=== PATIENT | female | born 1975 | race Caucasian/White ===

== ENCOUNTER 2020-05-30 04:46 | Inpatient (IN) | payer OTHER ==
[2020-05-26 17:29] VITALS: BMI 27.4
--- OUTSIDE RECORDS SUMMARY | 2020-05-30 04:49 | XMS ---
:1975 Author Organization [facility] Care Team Providers Name Role Phone Darryn Tobar Unavailable Unavailable Mil Simmons Unavailable Unavailable Anne Unavailable Unavailable VALERY LOPEZ Unavailable Unavailable DARSHANA FALCON Unavailable Unavailable Re-disclosure Warning The records that you are about to access may contain information from federally- assisted alcohol or drug abuse programs. If such information is present, then the following federally mandated warning applies: This information has been disclosed to you from records protected by federal confidentiality rules (42 CFR part 2). The federal rules prohibit you from making any further disclosure of this information unless further disclosure is expressly permitted by the written consent of the person to whom it pertains or as otherwise permitted by 42 CFR part 2. A general authorization for the release of medical or other information is NOT sufficient for this purpose. The Federal rules restrict any use of the information to criminally investigate or prosecute any alcohol or drug abuse patient.The records that you are about to access may contain highly sensitive health information, the redisclosure of which is protected by Article 27-F of the [facility] Public Health law. If you continue you may haveaccess to information: Regarding HIV / AIDS; Provided by facilities licensed or operated by the [facility] Office of Mental Health; or Provided by the [facility] Office for People With Developmental Disabilities. If such information is present, then the following [facility] mandated warning applies: This information has been disclosed to you from confidential records which are protected by state law. State law prohibits you from making any further disclosure of this information without the specific written consent of the person to whom it pertains, or as otherwise permitted by law. Any unauthorized further disclosure in violation of state law may result in a fine or care home sentence or both. A general authorization for the release of medical or other information is NOT sufficient authorization for further disclosure. Allergies and Adverse Reactions Type Description Substance Reaction Status Data Source(s ) 3 NO KNOWN ALLERGIES Clindamycin 150 MG Oral NEXTGEN ([facility] Tablet [Clintabs] Medical [facility]) Encounters Encounter Providers Location Date Indications Data Source(s ) Outpatient Attender: Mil 05/17/2020 NEXTGEN ([facility] 09:36:00 AM Medical [facility]) Outpatient Attender: Darryn 05/10/2020 NEXTGEN ( [facility] JohnReferrer: 10:50:00 AM [facility]) Outpatient Attender: Darryn 05/10/2020 NEXTGEN ( [facility] JohnReferrer: Darryn 10:50:00 AM [facility] ) Outpatient Attender: Mil 04/07/2020 NEXTGEN ([facility] 01:41:00 PM Medical [facility]) Outpatient Attender: EZEKIEL 03/29/2020 Z85.3 [facility] DARSHANA PrinceAttender: 06:00:00 AM [facility] Asmita LOPEZAmerican TV 2 Go ZVIAdmitter: DARSHANA FALCONReferrer: DARSHANA FALCON Z85.3 Outpatient Attender: Ericka 2020 10:50:00 NEXTGEN ([facility] MastroddiReferrer: Mil ALVARADO EDT Medical [facility]) Outpatient Attender: Mil Simmons 07/21/2019 12:01:00 NEXTGEN ([facility] PM EST Medical - [facility]) Outpatient Attender: Mil Simmons 07/20/2019 12:22:00 NEXTGEN ([facility] PM EST Medical - [facility]) Outpatient Attender: Mil Simmons 07/19/2019 09:17:00 NEXTGEN ([facility] AM EST Medical [facility]) Outpatient Attender: Mil Simmons 07/06/2019 12:42:00 NEXTGEN ([facility] PM EDT Medical - [facility]) Outpatient Attender: Mil 01/22/2019 04:15:00 NEXTGEN ([facility] IrisReferrer: Mil Simmons PM EDT Medical - [facility]) Outpatient Attender: Mil Simmons 11/11/2018 10:27:00 NEXTGEN ([facility] AM EST Medical - [facility]) Medications Medication Brand Start Product Dose Route Administrative Pharmacy [facility] Indications Reaction Description Data Name Date Form Instructions Instructions Source(s) Amoxicillin AMOXIC 05/10/ take 1 tablet RP NEXTGEN 875 MG / ILLIN- 2020 by oral route ([facility] Clavulanate CLAVUL 12:00: every 12 hours Medical - 125 MG Oral ANATE 00 AM [facility] co Tablet 875 POTASS EDT Medical mg-125 mg Group PC) 875 mg-125 mg Fluticasone FLUTIC 05/10/ spray 2 spray RP NEXTGEN propionate ASONE 2019 by intranasal ([facility] 0.05 PROPIO 12:00: route every Med ical - MG/ACTUAT FERNANDA 00 AM day in each [facility] Metered EDT nostril Medical Dose Nasal Group PC) [place] 50 mcg/actuati on 50 mcg/actuati on This may be an active medication. No end date is available. 10 mg 10 mg 01/22/2019 12:00:00 take by Oral RP NEXTGEN ([facility] AM EDT route Medical - [facility]) This may be an active medication. No end date is available. Insurance Providers Payer name Policy type Policy ID Covered Covered green party's Policy P koffi / Coverage green party ID relationship to [facility] type fle[facility] [id number] CARE HMO/POS/EPO [facility] [id number] [facility] [id number] [facility] Open Access HMO Problems, Conditions, and Diagnoses Code Display Name Description Problem Type Effective Data Sour ce(s) Dates J01.90 Acute sinusitis, Acute bacterial Diagnosis 05/10/2020 NEX TGEN unspecified rhinosinusitis 10:50:00 AM ([facility] EDT Medical - [facility]) Z01.818 Encounter for Preop exam for Diagnosis 05/10/2020 NEXTGEN other internal medicine 10:50:00 AM ([facility] preprocedural EDT Medical - M t examination [facility]) Z85.3 Personal history PERSONAL HISTORY Diagnosis 03/29/2020 Tuan holm of malignant OF MALIGNANT 06:00:00 AM [facility] neoplasm of breast NEOPLASM OF BREAST EDT [facility] Z85.3 Personal history Personal history Diagnosis 2020 NE XTGEN of malignant of malignant 10:50:00 AM ([facility] neoplasm of breast neoplasm of breast EDT Medical - [facility]) Z00.00 Encounter for General medical Diagnosis 2020 NEXTGE N general adult examination 10:50:00 AM ([facility] medical EDT Medical - [facility] without abnormal [facility] ) findings Surgeries/Procedures Procedure Description Date Indications Data Source(s) OFFICE/OUTPATIENT OFFICE/OUTPATIENT 05/10/2020 NEXTG EN ([facility] VISIT EST VISIT EST 12:00:00 AM Medical - [facility] EDT Medical Group P C) PREV VISIT EST AGE PREV VISIT EST AGE 0703/24/2020 NEX TGEN ([facility] 40-64 40-64 12:00:00 [facility] Results ID Date Data Source [id number] 05/25/2020 01:50:00 PM EDT [facility] Name Value Range Interpretation Description Data Sup porting Code Source(s) Document(s ) SARS [facility] coronavirus 2 RNA This lab was ordered by [facility] and reported by [facility]. Procedure
[2020-05-30] MEDS ORDERED: CEFAZOLIN 2 GM in DEXTROSE 5%-WATER - 100 ML IVPB ONE (07:08)
[2020-05-30] MEDS ORDERED: PAPAVERINE HCL 30 MG/1 ML 10 ML VIAL NR ONE (07:19)
[2020-05-30] MEDS ORDERED: BUPIVACAINE LIPOSOME/PF (EXPAREL) 266 MG/20 ML VIAL ONE (07:19)
[2020-05-30] MEDS ORDERED: BUPIVACAINE HCL/PF 0.25% (2.5MG/ML) 10 ML VIAL ONE (07:20)
[2020-05-30] MEDS ORDERED: HEPARIN NA (PORCINE) 5,000 UNITS/ML 1ML VIAL ONE (07:20)
[2020-05-30] MEDS ORDERED: fentaNYL CITRATE 250 MCG/5 ML VIAL ONE ×3 (07:40→12:07)
[2020-05-30] MEDS ORDERED: EPHEDRINE SULFATE/0.9% NACL/PF 50 MG/10 ML SYRINGE NR ONE (07:40)
[2020-05-30] MEDS ORDERED: SUCCINYLCHOLINE CHLORIDE 200 MG/10 ML SYRINGE ONE (07:40)
[2020-05-30] MEDS ORDERED: PROPOFOL 20 ML ONE ×6 (07:40→15:39)
[2020-05-30] MEDS ORDERED: ROCURONIUM BROMIDE 100 MG/10 ML VIAL ONE ×2 (07:41→08:49)
[2020-05-30] MEDS ORDERED: MIDAZOLAM HCL 2 MG/2 ML SINGLE DOSE VIAL ONE (07:41)
[2020-05-30] MEDS ORDERED: SCOPOLAMINE HYDROBROMIDE 1 PATCH PATCH.TD72 ONE (07:55)
[2020-05-30] MEDS ORDERED: HEPARIN NA (PORCINE) 5,000 UNITS/ML 1ML VIAL SQ ONE (08:17)
[2020-05-30] MEDS ORDERED: ceFAZolin SODIUM 1 GM VIAL IVPB ONE (08:18)
[2020-05-30] MEDS ORDERED: EPINEPHrine/PF 1 MG/1 ML (1:1,000) AMPULE ONE (08:41)
[2020-05-30] MEDS ORDERED: ceFAZolin SODIUM 1 GM VIAL ONE ×3 (09:16→16:03)
[2020-05-30] MEDS ORDERED: DEXAMETHASONE SOD PHOSPHATE 4 MG/1 ML VIAL ONE (09:16)
[2020-05-30] MEDS ORDERED: LIDOCAINE HCL 2% JELLY (5 ML/TUBE) ONE (09:16)
[2020-05-30] MEDS ORDERED: DESFLURANE GAS 240 ML BOTTLE IH ONE (11:09)
[2020-05-30] MEDS ORDERED: VECURONIUM BROMIDE 10 MG/10 ML VIAL ONE (11:36)
[2020-05-30] MEDS ORDERED: BUPIVACAINE HCL/PF 0.25% (2.5MG/ML) 10 ML VIAL IJ ONE (11:49)
[2020-05-30] MEDS ORDERED: BUPIVACAINE LIPOSOME/PF (EXPAREL) 266 MG/20 ML VIAL NR ONE (11:49)
[2020-05-30] MEDS ORDERED: WATER FOR INJ,STERILE 10 ML ONE (15:09)
[2020-05-30] MEDS ORDERED: ALTEPLASE 2 MG VIAL IA ONE (15:28)
[2020-05-30] MEDS ORDERED: NEOSTIGMINE METHYLSULFATE 0.5 MG/ML - 10 ML MDV ONE (16:32)
[2020-05-30] MEDS ORDERED: GLYCOPYRROLATE 0.2 MG/1 ML VIAL ONE (16:32)
[2020-05-30] MEDS ORDERED: HEPARIN NA (PORCINE) 5,000 UNITS/ML 1ML VIAL IVPUSH PRN ×2 (16:42)
[2020-05-30] MEDS ORDERED: DEXTROSE 5%-0.45% SALINE 1,000 ML IV SCH (16:45)
[2020-05-30] MEDS ORDERED: HEPARIN - 25,000 UNIT in SODIUM CHLORIDE 495 ML IV SCH (16:45)
[2020-05-30] MEDS ORDERED: oxyCODONE HCL 5 MG TABLET PO PRN ×2 (16:56)
[2020-05-30] MEDS: HEPARIN - 25,000 UNIT in SODIUM CHLORIDE 495 ML IV SCH (17:03)
[2020-05-30] MEDS ORDERED: PROMETHAZINE HCL 25 MG/1 ML VIAL IVPUSH PRN (17:10)
[2020-05-30] MEDS ORDERED: ONDANSETRON 4 MG/2 ML VIAL IVPUSH PRN (17:10)
--- NOTE | 2020-05-30 20:29 | CONSULT ---
Consultation: REQUESTING PROVIDER: CONSULT REQUEST: We have been asked to medically evaluate this patient for (specify). HISTORY OF PRESENT ILLNESS: Patient is a 45 YO F with no significant PMH who presents for bilateral breast reconstruction with MICHAEL (Deep Inferior Epigastric Perforators) flap. 2 nodules were noted on the Right breast on routine breast ultrasound in 2014. As a result she underwent, bilateral breast mastectomy in 2014 and TC chemotherapy [docetaxel (Taxotere), cyclophosphamide] every 3 weeks. Denies radiation therapy. She was ER+ and took Arimidex, but was not tolerating it, so she stopped. Patient has been in remission since 2016. Oncologist: Dr. Sandoval ([facility]) PCP: Dr. Mil Simmons ([facility]) PMH: none PSH: hystectomy 2014, bilateral breast mastectomy in 2014, bilateral breast reconstruction with MICHAEL 05/30/20 Allergies: denies, except seasonal allergies Meds: occasionally uses tylenlol for sinus pain, flonase for allergies Family History: Father COPD & unknown cancer//Mom Diabetes Social History: alcohol: 10 drinks/year cigarettes: 1/2 PPD for 15 years. Quit 6 weeks ago. Denies need for nicotine patch at this time drugs: denies REVIEW OF SYSTEMS: CONSTITUTIONAL: Absent: fever, chills, diaphoresis, generalized weakness, malaise, loss of appetite, weight change HEENT: throat pain Absent: rhinorrhea, nasal congestion, throat swelling, difficulty swallowing, mouth swelling, ear pain, eye pain, visual changes CARDIOVASCULAR: Absent: chest pain, syncope, palpitations, irregular heart rate, lightheadedness, peripheral edema RESPIRATORY: Absent: cough, shortness of breath, dyspnea with exertion, orthopnea, wheezing, stridor, hemoptysis GASTROINTESTINAL: Absent: abdominal pain, abdominal distension, nausea, vomiting, diarrhea, constipation, melena, hematochezia GENITOURINARY: Absent: dysuria, frequency, urgency, hesitancy, hematuria, flank pain, genital pain MUSCULOSKELETAL: Absent: myalgia, arthralgia, joint swelling, back pain, neck pain SKIN: Absent: rash, itching, pallor HEMATOLOGIC/IMMUNOLOGIC: Absent: easy bleeding, easy bruising, lymphadenopathy, frequent infections ENDOCRINE: Absent: unexplained weight gain, unexplained weight loss, heat intolerance, cold intolerance NEUROLOGIC: Absent: headache, focal weakness or paresthesias, dizziness, unsteady gait, seizure, mental status changes, bladder or bowel incontinence PSYCHIATRIC: Absent: anxiety, depression, suicidal or homicidal ideation, hallucinations. PHYSICAL EXAMINATION Vital Signs - 24 hr 05/30/20 05/30/20 05/30/20 06:51 06:54 17:15 Temperature 97.5 F L 97.5 F L Pulse Rate 67 67 104 H Respiratory 20 20 16 Rate Blood Pressure 119/69 119/69 11/79 L O2 Sat by Pulse 97 97 98 Oximetry (%) 05/30/20 05/30/20 05/30/20 17:30 17:45 18:00 Temperature Pulse Rate 96 H 100 H 100 H Respiratory 14 16 16 Rate Blood Pressure 115/75 118/76 117/71 O2 Sat by Pulse 97 97 96 Oximetry (%) 05/30/20 05/30/20 05/30/20 18:15 18:30 18:45 Temperature Pulse Rate 105 H 102 H 104 H Respiratory 10 10 10 Rate Blood Pressure 122/73 104/69 115/73 O2 Sat by Pulse 98 100 100 Oximetry (%) 05/30/20 05/30/20 05/30/20 19:00 19:15 19:30 Temperature 98.3 F Pulse Rate 104 H 99 H 101 H Respiratory 13 19 20 Rate Blood Pressure 111/66 99/62 100/67 O2 Sat by Pulse 97 99 98 Oximetry (%) GENERAL: Awake, alert, and fully oriented, in no acute distress. HEENT: Normal with no signs of trauma. Pupils equal, round and reactive to light, Moist mucous membranes. LUNGS: Breath sounds equal, clear to auscultation bilaterally. No wheezes, and no crackles. No accessory muscle use. HEART: Regular rate and rhythm, normal S1 and S2 without murmur, rub or gallop. CHEST: bilateral incisions under breasts. incisions clean & dry, no discharge ABDOMEN: Soft, nontender, not distended, no guarding, no rebound, no masses. hypoactive bowel sounds, transverse incision clean & dry, no discharge UPPER EXTREMITIES: 2+ pulses, warm, well-perfused. No cyanosis. No clubbing. No peripheral edema. LOWER EXTREMITIES: 2+ pulses, warm, well-perfused. No calf tenderness. No peripheral edema. NEUROLOGICAL: Normal speech. Gait not assessed PSYCHIATRIC: Cooperative. Good eye contact. Appropriate mood and affect. SKIN: Warm, dry, normal turgor, no rashes. Laboratory Results - last 24 hr 05/30/20 05/30/20 06:16 06:16 Serum , Qual Negative Blood Type AB POSITIVE Antibody Screen Negative Active Medications Generic Name Dose Route Start Last Admin Trade Name Freq PRN Reason Stop Dose Admin Diazepam 5 mg 05/30/20 16:38 Valium - PO Q8H PRN ANXIETY Docusate Sodium 100 mg 05/30/20 22:00 Colace - PO BID LINK Dextrose/Sodium Chloride 1,000 mls @ 125 mls/hr 05/30/20 16:45 05/30/20 18:00 D5-1/2ns - IV 05/31/20 08:00 250 mls ASDIR LINK Administration Dextrose/Sodium Chloride 1,000 mls @ 75 mls/hr 05/31/20 08:00 D5-1/2ns - IV ASDIR LINK Cefazolin Sodium 1 gm in 50 mls @ 100 mls/hr 05/30/20 21:00 Ancef 1 Gm Premixed Ivpb - IVPB Q6H-IV LINK Heparin Sodium (Porcine) 25, 500 mls @ 10 mls/hr 05/30/20 16:48 05/30/20 17:03 000 unit/ Sodium Chloride IV 43 mls TITR LINK Administration Protocol 500 UNIT/HR Morphine Sulfate 2 mg 05/30/20 16:56 Morphine Sulfate IVPUSH Q4H PRN Breakthrough pain Ondansetron HCl 4 mg 05/30/20 17:10 Zofran Injection IVPUSH Q6H PRN NAUSEA AND/OR VOMITING Oxycodone HCl 5 mg 05/30/20 16:56 Roxicodone - PO Q4H PRN PAIN LEVEL 1-5 Oxycodone HCl 10 mg 05/30/20 16:56 Roxicodone - PO Q4H PRN PAIN LEVEL 6-10 Promethazine HCl 12.5 mg 05/30/20 17:10 Phenergan Injection - IVPUSH Q6H PRN NAUSEA-FOR RESCUE AFTER 15 MIN ASSESSMENT/PLAN: Patient is a 45 YO F with no significant PMH who presents for bilateral breast reconstruction with MICHAEL (Deep Inferior Epigastric Perforators) flap. Neuro AAOX3 morphine 2 gm IV PUSH Q4H PRN, oxycodone for pain Cardio no acute issues Pulm no acute issues GI docusate 100 mg PO BID promethazine 12.5 mg IV push Q6H PRN & ondansetron 4 mg IV push Q6H PRN for Nausea ID s/p cefazolin 2 gm cefazolin 1 gm/D5W Q6H for 24 hrs FEN NPO now. Clear liquids for breakfast: no caffeine/chocolate monitor lytes D5 1/2 NS @75 ml/hr DVT heparin 25,000 units in NS Lines 5 KIRBY drains with blood draining Dispo: We will continue to follow the patient. Thank you for this consultative opportunity. ATTENDING PHYSICIAN STATEMENT I saw and evaluated the patient. I reviewed the resident's note and discussed the case with the resident. I agree with the resident's findings and plan as documented. SUBJECTIVE: OBJECTIVE: ASSESSMENT AND PLAN:
[2020-05-30] MEDS: CEFAZOLIN 1 GM/D5W 1 GM/50 ML BAG IVPB SCH (21:44)
[2020-05-30] MEDS: CHLORHEXIDINE GLUCONATE 4% CLEANSER FOR DECOLONIZATION TP SCH (21:45)
[2020-05-30] MEDS: DOCUSATE SODIUM 100 MG CAPSULE (FP) PO SCH (21:45)
[2020-05-30] MEDS: MUPIROCIN 2% TOPICAL OINTMENT FOR DECOLONIZATION NS SCH (21:45)
[2020-05-30] MEDS ORDERED: ACETAMINOPHEN 325 MG TABLET (FP) ONE (22:54)
[2020-05-30] MEDS: ACETAMINOPHEN 500 MG TABLET (FP) PO PRN (22:55)
[2020-05-31 00:45] LABS: INR 1.09 (0.83-1.09); PROTHROMBIN TIME (PATIENT) 12.9 SEC (9.7-13.0)
[2020-05-31] MEDS: MORPHINE SULFATE 2 MG/ML VIAL IVPUSH PRN ×3 (01:01→08:40)
[2020-05-31] MEDS: CEFAZOLIN 1 GM/D5W 1 GM/50 ML BAG IVPB SCH ×4 (03:55→21:32)
[2020-05-31 06:42] LABS: BASO % 0.2 % (0-2.0); EOS % 0.1 % (0-4.5); HEMATOCRIT 29.5 % (32.4-45.2); HEMOGLOBIN 10.3 GM/dL (10.7-15.3); MCH 31.7 pg (25.7-33.7); MEAN CELL VOLUME 90.6 fl (80-96); MEAN PLT VOLUME 7.7 fl (7.5-11.1); MONO % 10.7 % (3.8-10.2); PLATELET COUNT 189 K/MM3 (134-434); RBC 3.25 M/mm3 (3.60-5.2); RDW 12.4 % (11.6-15.6); WHITE BLOOD COUNT 6.2 K/mm3 (4.0-10.0)
--- NOTE | 2020-05-31 06:54 | SURG ---
Surgery Consignee Note Consignee: Blaise Fabian PA-C Date of Service: 05/30/20 Diagnosis: 2 nodules were noted on the Right breast on routine breast ultrasound in 2014. As a result she underwent, bilateral breast mastectomy in 2015 and TC chemotherapy Procedure: Bilateral breast reconstruction with MICHAEL (Deep Inferior Epigastric Perforators) flap. I was present for the entirety of the operative procedure. For further detail, please refer to operative report. Visit type - Case Type Case Type: Scheduled - New patient This patient is new to me today: Yes Date on this admission: 05/31/20
[2020-05-31 07:00] LABS: BLOOD UREA NITROGEN 14.9 mg/dL (7-18); CALCIUM 7.7 mg/dL (8.5-10.1); CREATININE 0.6 mg/dL (0.55-1.3); PHOSPHOROUS 3.2 mg/dL (2.5-4.9); POTASSIUM 3.9 mmol/L (3.5-5.1)
[2020-05-31] MEDS ORDERED: MORPHINE SULFATE 2 MG/ML VIAL IM ONE (07:09)
[2020-05-31] MEDS ORDERED: DEXTROSE 5%-0.45% SALINE 1,000 ML IV SCH (08:00)
[2020-05-31] MEDS ORDERED: HYDROmorphone HCL 2 MG TABLET PO PRN ×2 (08:19→08:47)
[2020-05-31] MEDS: MUPIROCIN 2% TOPICAL OINTMENT FOR DECOLONIZATION NS SCH ×2 (09:01→21:32)
[2020-05-31] MEDS: DOCUSATE SODIUM 100 MG CAPSULE (FP) PO SCH ×2 (09:01→21:32)
--- NOTE | 2020-05-31 09:38 | PN ---
Progress Note (short form) - Note Progress Note: PLASTIC SURGERY POD #1 No acute events since surgery per RN notes. Alert. Resting comfortably. C/o incisional tenderness. Remains in bed with legs in flexed position. Denies n/v/f/c, CP, palpitations, SOb or GOODMAN. Last Vital Signs Temp Pulse Resp BP Pulse Ox 98.3 F 81 19 104/53 L 95 05/31/20 06:00 05/31/20 08:00 05/31/20 08:00 05/31/20 08:00 05/31/20 08:00 CBC, BMP 05/31/20 05:40 05/31/20 05:40 INR, PTT INR 1.09 (0.83-1.09) 05/31/20 00:10 GEN: A&O. NAD PULM: unlabored respirations on room air COR: RRR BREASTS: flaps viable bilateral. Implantable doppler with audible pulse (strong) bilateral. Remedios-incision ecchymosis. KIRBY drains (sanquinous) ABD: Umbilicus viable. Transverse incision c/d/i (Prineo dressing). JPs (serosanguinous) LE: All compartments soft. Supple. NT. SCDs bilat. A/P: 45 yo female now POD #1 s/p Bilateral breast reconstruction with MICHAEL flap. Intra-op bilateral Tap Block. Under GA. -DC pizano and begin trial of void -Monitor record KIRBY output q shift -While in bed keep legs in flexed position -While ambulating must walk in a hunched-over position -Hep gtt at 500/hr -Ofirmev 1 gm IV q 6hr for pain (pt has opiate abuse history) -Incentive Spirometer -PT to assist w/ ambulation -Regular diet Above plan discussed with Dr. Nichols and agrees. Problem List - Problems (1) Status post bilateral breast reconstruction Code(s): Z98.890 - OTHER SPECIFIED POSTPROCEDURAL STATES (2) Breast cancer Code(s): C50.919 - MALIGNANT NEOPLASM OF UNSP SITE OF UNSPECIFIED FEMALE BREAST
[2020-05-31] MEDS ORDERED: oxyCODONE HCL 5 MG TABLET PO PRN (10:48)
[2020-05-31] MEDS: oxyCODONE HCL 5 MG TABLET PO PRN ×2 (10:58→17:06)
[2020-05-31] MEDS: ACETAMINOPHEN 500 MG TABLET (FP) PO PRN ×2 (11:03→19:57)
--- NOTE | 2020-05-31 13:54 | PN ---
Physical Exam: SUBJECTIVE: Patient seen and examined. Endorses abdominal pain, mostly at incision site, and arm pain due to positioning from surgery. Endorses throat pain again. Denies N/V, BM, and passing flatus. 130 ml blood from Left breast drain and 40 ml from Right breast. On heparin 500 units/h for blood clot in Left breast. Unable to use incentive spirometry due to pain. POD#1 OBJECTIVE: Vital Signs Period Temp Pulse Resp BP Sys/Walker Pulse Ox Last 24 Hr 98 F-98.4 F 80-105 10-25 11-122/50-99 94-100 GENERAL: Awake, alert, and fully oriented, in no acute distress. HEENT: Normal with no signs of trauma. Pupils equal, round and reactive to light, Moist mucous membranes. LUNGS: decreased breath sounds b/l bases. No wheezes, and no crackles. No accessory muscle use. HEART: Regular rate and rhythm, normal S1 and S2 without murmur, rub or gallop. CHEST: bilateral incisions under breasts. incisions clean & dry, no discharge. TTP ABDOMEN: Soft, not distended, no guarding, no rebound, no masses. hypoactive bowel sounds, transverse incision clean & dry, no discharge. TTP diffusely EXTREMITIES: 2+ pulses, warm, well-perfused. No peripheral edema. NEUROLOGICAL: Normal speech. Gait not assessed PSYCHIATRIC: Cooperative. Good eye contact. Appropriate mood and affect. SKIN: Warm, dry, normal turgor, no rashes. Laboratory Results - last 24 hr 05/30/20 05/31/20 05/31/20 22:57 00:10 00:10 WBC RBC Hgb Hct MCV MCH MCHC RDW Plt Count MPV Absolute Neuts (auto) Neutrophils % Lymphocytes % Monocytes % Eosinophils % Basophils % Nucleated RBC % PT with INR 12.90 INR 1.09 PTT (Actin FS) Cancelled 27.7 Sodium Potassium Chloride Carbon Dioxide Anion Gap BUN Creatinine Est GFR (CKD-EPI)AfAm Est GFR (CKD-EPI)NonAf Random Glucose Calcium Phosphorus Magnesium 05/31/20 05/31/20 05:40 05:40 WBC 6.2 RBC 3.25 L Hgb 10.3 L Hct 29.5 L MCV 90.6 MCH 31.7 MCHC 35.0 RDW 12.4 Plt Count 189 MPV 7.7 Absolute Neuts (auto) 3.8 Neutrophils % 62.0 Lymphocytes % 27.0 Monocytes % 10.7 H Eosinophils % 0.1 Basophils % 0.2 Nucleated RBC % 0 PT with INR INR PTT (Actin FS) Sodium 135 L Potassium 3.9 Chloride 102 Carbon Dioxide 26 Anion Gap 7 L BUN 14.9 Creatinine 0.6 Est GFR (CKD-EPI)AfAm 126.69 Est GFR (CKD-EPI)NonAf 109.31 Random Glucose 303 H Calcium 7.7 L Phosphorus 3.2 Magnesium 2.0 Active Medications Generic Name Dose Route Start Last Admin Trade Name Freq PRN Reason Stop Dose Admin Acetaminophen 500 mg 05/30/20 22:49 05/31/20 11:03 Tylenol - PO 500 mg Q6H PRN Administration PAIN LEVEL 1 - 3 Chlorhexidine Gluconate 1 applic 05/30/20 22:00 05/30/20 21:45 Hibiclens For Decolonization - TP 1 applic HS LINK Administration Diazepam 5 mg 05/30/20 16:38 Valium - PO Q8H PRN ANXIETY Docusate Sodium 100 mg 05/30/20 22:00 05/31/20 09:01 Colace - PO 100 mg BID LINK Administration Cefazolin Sodium 1 gm in 50 mls @ 100 mls/hr 05/30/20 21:00 05/31/20 08:57 Ancef 1 Gm Premixed Ivpb - IVPB 100 mls/hr Q6H-IV LINK Administration Heparin Sodium (Porcine) 25, 500 mls @ 10 mls/hr 05/30/20 16:48 05/30/20 17:03 000 unit/ Sodium Chloride IV 43 mls TITR LINK Administration Protocol 500 UNIT/HR Sodium Chloride 1,000 mls @ 42 mls/hr 05/31/20 12:30 Normal Saline - IV ASDIR LINK Morphine Sulfate 2 mg 05/30/20 16:56 05/31/20 08:40 Morphine Sulfate IVPUSH 2 mg Q4H PRN Administration Breakthrough pain Mupirocin 1 applic 05/30/20 22:00 05/31/20 09:01 Bactroban Ointment (For Decolonization) - NS 06/04/20 21:59 1 applic BID LINK Administration Ondansetron HCl 4 mg 05/30/20 17:10 Zofran Injection IVPUSH Q6H PRN NAUSEA AND/OR VOMITING Oxycodone HCl 10 mg 05/31/20 10:48 05/31/20 10:58 Roxicodone - PO 10 mg Q6H PRN Administration PAIN LEVEL 7 - 10 Oxycodone HCl 5 mg 05/31/20 10:48 Roxicodone - PO Q6H PRN PAIN LEVEL 4 - 6 Promethazine HCl 12.5 mg 05/30/20 17:10 Phenergan Injection - IVPUSH Q6H PRN NAUSEA-FOR RESCUE AFTER 15 MIN ASSESSMENT/PLAN: Patient is a 45 YO F with no significant PMH who presents for bilateral breast reconstruction with MICHAEL (Deep Inferior Epigastric Perforators) flap. POD#1 Neuro -AAOX3 -morphine 2 gm IV PUSH Q4H PRN, oxycodone, acetaminophen 500 mg PO Q6H PRN for pain -keep legs in flexed position in bed -PT to assist w/ ambulation. Per surgery, must walk in a hunched-over position for ambulation Cardio no acute issues Pulm -Incentive Spirometer GI docusate 100 mg PO BID promethazine 12.5 mg IV push Q6H PRN & ondansetron 4 mg IV push Q6H PRN for Nausea ID s/p cefazolin 2 gm cefazolin 1 gm/D5W Q6H for 24 hrs FEN Clear liquids monitor lytes NS@42 mll/hr DVT heparin 500 units/h Lines -5 KIRBY drains (2 on Left breast, 1 Left abdomen, 1 R breast, 1 right abdomen) -DC pizano and begin trial of void Dr. Nichols [phone] Visit type - Emergency Visit Emergency Visit: Yes ED Registration Date: 05/30/20 Care time: The patient presented to the Emergency Department on the above date and was hospitalized for further evaluation of their emergent condition. - New Patient This patient is new to me today: No - Critical Care Critical Care patient: No ATTENDING PHYSICIAN STATEMENT I saw and evaluated the patient. I reviewed the resident's note and discussed the case with the resident. I agree with the resident's findings and plan as documented. SUBJECTIVE: OBJECTIVE: ASSESSMENT AND PLAN:
[2020-05-31] MEDS: SODIUM CHLORIDE 1,000 ML IV SCH (13:55)
--- NOTE | 2020-05-31 14:16 | PN ---
Teaching Attending Note Name of Resident: Ruddy Holman ATTENDING PHYSICIAN STATEMENT I saw and evaluated the patient. I reviewed the resident's note and discussed the case with the resident. I agree with the resident's findings and plan as documented. SUBJECTIVE: Pt seen and examined in the ICU. Pain not controlled this AM. Unable to use her incentive spirometry. OBJECTIVE: Vital Signs Period Temp Pulse Resp BP Sys/Walker Pulse Ox Last 24 Hr 98 F-98.4 F 80-105 10-25 11-122/50-99 94-100 Intake & Output 05/28/20 05/29/20 05/30/20 05/31/20 23:59 23:59 23:59 23:59 Intake Total 2593 1450 Output Total 1288 880 Balance 1305 570 Gen: NAD at rest Heart: RRR Lung: decreased breath sounds at the bases Abd: soft, incisions clean Ext: no edema Drains with serosanguinous fluid CBC, BMP 05/31/20 05:40 05/31/20 05:40 Active Medications Acetaminophen (Tylenol -) 500 mg PO Q6H PRN PRN Reason: PAIN LEVEL 1 - 3 Last Admin: 05/31/20 11:03 Dose: 500 mg Documented by: Chlorhexidine Gluconate (Hibiclens For Decolonization -) 1 applic TP HS LINK Last Admin: 05/30/20 21:45 Dose: 1 applic Documented by: Diazepam (Valium -) 5 mg PO Q8H PRN PRN Reason: ANXIETY Docusate Sodium (Colace -) 100 mg PO BID LINK Last Admin: 05/31/20 09:01 Dose: 100 mg Documented by: Cefazolin Sodium (Ancef 1 Gm Premixed Ivpb -) 1 gm in 50 mls @ 100 mls/hr IVPB Q6H-IV LINK Last Admin: 05/31/20 08:57 Dose: 100 mls/hr Documented by: Heparin Sodium (Porcine) 25, (000 unit/ Sodium Chloride) 500 mls @ 10 mls/hr IV TITR LINK; Protocol Last Admin: 05/30/20 17:03 Dose: 43 mls Documented by: Sodium Chloride (Normal Saline -) 1,000 mls @ 42 mls/hr IV ASDIR LINK Last Admin: 05/31/20 13:55 Dose: 42 mls/hr Documented by: Morphine Sulfate (Morphine Sulfate) 2 mg IVPUSH Q4H PRN PRN Reason: Breakthrough pain Last Admin: 05/31/20 08:40 Dose: 2 mg Documented by: Mupirocin (Bactroban Ointment (For Decolonization) -) 1 applic NS BID LINK Stop: 06/04/20 21:59 Last Admin: 05/31/20 09:01 Dose: 1 applic Documented by: Ondansetron HCl (Zofran Injection) 4 mg IVPUSH Q6H PRN PRN Reason: NAUSEA AND/OR VOMITING Oxycodone HCl (Roxicodone -) 10 mg PO Q6H PRN PRN Reason: PAIN LEVEL 7 - 10 Last Admin: 05/31/20 10:58 Dose: 10 mg Documented by: Oxycodone HCl (Roxicodone -) 5 mg PO Q6H PRN PRN Reason: PAIN LEVEL 4 - 6 Promethazine HCl (Phenergan Injection -) 12.5 mg IVPUSH Q6H PRN PRN Reason: NAUSEA-FOR RESCUE AFTER 15 MIN ASSESSMENT AND PLAN: Breast Ca s/p Bilateral Mastectomies s/p MICHAEL flap POD 1 Anemia - flap monitoring - pain control - incentive spirometry - O2 to keep SpO2 >90% - rehab/PT - DVT prophylaxis - dispo per surgery
[2020-05-31] MEDS ORDERED: CALCIUM GLUCONATE 10% - 1,000 MG/10 ML VIAL IVPB ONE (15:47)
[2020-05-31] MEDS: HEPARIN - 25,000 UNIT in SODIUM CHLORIDE 495 ML IV SCH (16:59)
[2020-05-31] MEDS ORDERED: oxyCODONE HCL 10 MG SUSTAINED ACTING TABLET PO PRN (20:31)
[2020-05-31] MEDS ORDERED: LORATADINE 10 MG TABLET PO PRN (20:44)
[2020-05-31] MEDS ORDERED: FLUTICASONE PROP 0.05% 16 GM NASAL SPRAY NS PRN (20:44)
[2020-05-31] MEDS: CHLORHEXIDINE GLUCONATE 4% CLEANSER FOR DECOLONIZATION TP SCH (21:33)
[2020-05-31] MEDS: oxyCODONE HCL 10 MG SUSTAINED ACTING TABLET PO SCH (21:33)
[2020-06-01] MEDS: diazePAM 5 MG TABLET PO PRN ×2 (01:18→15:05)
[2020-06-01] MEDS: CEFAZOLIN 1 GM/D5W 1 GM/50 ML BAG IVPB SCH (02:37)
[2020-06-01] MEDS: oxyCODONE HCL 5 MG TABLET PO PRN ×3 (02:38→17:37)
[2020-06-01] MEDS: MORPHINE SULFATE 2 MG/ML VIAL IVPUSH PRN (04:40)
[2020-06-01 07:08] LABS: HEMATOCRIT 26.4 % (32.4-45.2); HEMOGLOBIN 9.1 GM/dL (10.7-15.3); MCH 30.9 pg (25.7-33.7); MCHC 34.6 g/dl (32.0-36.0); MEAN CELL VOLUME 89.4 fl (80-96); MEAN PLT VOLUME 7.5 fl (7.5-11.1); PLATELET COUNT 170 K/MM3 (134-434); RBC 2.95 M/mm3 (3.60-5.2); RDW 12.4 % (11.6-15.6); WHITE BLOOD COUNT 6.4 K/mm3 (4.0-10.0)
[2020-06-01 08:25] LABS: ALBUMIN 2.5 g/dl (3.4-5.0); BLOOD UREA NITROGEN 6.4 mg/dL (7-18); CALCIUM 7.9 mg/dL (8.5-10.1); CREATININE 0.3 mg/dL (0.55-1.3); MAGNESIUM 2.2 mg/dL (1.8-2.4); PHOSPHOROUS 2.5 mg/dL (2.5-4.9); POTASSIUM 3.5 mmol/L (3.5-5.1)
[2020-06-01] MEDS ORDERED: PT OWN MED DRAWER 7, Y5N ONE (08:45)
--- NOTE | 2020-06-01 08:53 | PN ---
Progress Note (short form) - Note Progress Note: PLASTIC SURGERY POD #2 Alert. Resting comfortably. C/o incisional tenderness. Adequate pain management w/ meds ordered. Got OOB w/ PT yesterday. Currently in bed with legs in flexed position. Denies n/v/f/c, CP, palpitations, SOB or GOODMAN. Last Vital Signs Temp Pulse Resp BP Pulse Ox 99.9 F H 75 13 105/57 L 100 06/01/20 06:00 06/01/20 06:00 06/01/20 06:00 06/01/20 06:00 06/01/20 06:00 CBC, BMP 06/01/20 06:15 06/01/20 06:15 INR, PTT INR 1.09 (0.83-1.09) 05/31/20 00:10 GEN: A&O. NAD PULM: unlabored respirations on room air COR: RRR BREASTS: flaps viable bilateral. Implantable doppler with audible pulse (strong) bilateral. Remedios-incision ecchymosis. KIRBY drains (sanquinous) ABD: Umbilicus viable. Transverse incision c/d/i (Prineo dressing). JPs (serosanguinous) LE: All compartments soft. Supple. NT. SCDs bilat. A/P: 45 yo female now POD #2 s/p Bilateral breast reconstruction with MICHAEL flap. Intra-op bilateral Tap Block. Under GA. -Monitor record KIRBY output q shift -While in bed keep legs in flexed position -While ambulating must walk in a hunched-over position -Hep gtt at 500/hr -Ofirmev 1 gm IV q 6hr for pain (pt has opiate abuse history) -Incentive Spirometer -PT to assist w/ ambulation -Regular diet -DC planning 06/02/20 Above plan discussed with Drs. Nichols and Claritza and agrees. Problem List - Problems (1) Status post bilateral breast reconstruction Code(s): Z98.890 - OTHER SPECIFIED POSTPROCEDURAL STATES (2) Breast cancer Code(s): C50.919 - MALIGNANT NEOPLASM OF UNSP SITE OF UNSPECIFIED FEMALE BREAST
[2020-06-01] MEDS ORDERED: CEFAZOLIN 1 GM in DEXTROSE 5%-WATER - 50 ML IVPB SCH (09:22)
[2020-06-01] MEDS ORDERED: DEXTROSE 5%-WATER - 50 ML IVPB ONE ×3 (09:40→20:33)
[2020-06-01] MEDS ORDERED: ceFAZolin SODIUM 1 GM VIAL ONE ×3 (09:40→20:33)
[2020-06-01] MEDS: CEFAZOLIN 1 GM in DEXTROSE 5%-WATER - 50 ML IVPB SCH ×3 (10:17→21:00)
[2020-06-01] MEDS: oxyCODONE HCL 10 MG SUSTAINED ACTING TABLET PO SCH (10:21)
[2020-06-01] MEDS: MUPIROCIN 2% TOPICAL OINTMENT FOR DECOLONIZATION NS SCH ×2 (10:22→22:00)
[2020-06-01] MEDS: DOCUSATE SODIUM 100 MG CAPSULE (FP) PO SCH ×2 (10:52→22:00)
--- NOTE | 2020-06-01 11:01 | PN ---
Teaching Attending Note Name of Resident: Ruddy Holman ATTENDING PHYSICIAN STATEMENT I saw and evaluated the patient. I reviewed the resident's note and discussed the case with the resident. I agree with the resident's findings and plan as documented. SUBJECTIVE: Patient seen and examined in the ICU. Pain better controlled this AM but still 5/10. 1000 cc on incentive spirometry. On 5L NC O2. OBJECTIVE: Intake & Output 05/29/20 05/30/20 05/31/20 06/01/20 23:59 23:59 23:59 23:59 Intake Total 2593 2186 624 Output Total 1288 2900 635 Balance 1305 -714 -11 Last Vital Signs Temp Pulse Resp BP Pulse Ox 98.6 F 83 15 102/53 L 98 06/01/20 10:00 06/01/20 10:00 06/01/20 10:00 06/01/20 10:00 06/01/20 10:00 Active Medications Acetaminophen (Tylenol -) 1,000 mg PO Q6H PRN PRN Reason: PAIN LEVEL 1 - 3 Last Admin: 05/31/20 19:57 Dose: 1,000 mg Documented by: Chlorhexidine Gluconate (Hibiclens For Decolonization -) 1 applic TP HS [facility] Last Admin: 05/31/20 21:33 Dose: 1 applic Documented by: Diazepam (Valium -) 5 mg PO Q8H PRN PRN Reason: ANXIETY Last Admin: 06/01/20 01:18 Dose: 5 mg Documented by: Docusate Sodium (Colace -) 100 mg PO BID [facility] Last Admin: 06/01/20 10:52 Dose: 100 mg Documented by: Fluticasone Propionate (Flonase -) 1 spray NS BID PRN PRN Reason: Congestion Last Admin: 06/01/20 08:50 Dose: 1 spray Documented by: Heparin Sodium (Porcine) 25, (000 unit/ Sodium Chloride) 500 mls @ 10 mls/hr IV TITR LINK; Protocol Last Admin: 05/31/20 16:59 Dose: Not Given Documented by: Sodium Chloride (Normal Saline -) 1,000 mls @ 42 mls/hr IV ASDIR LINK Last Admin: 05/31/20 13:55 Dose: 42 mls/hr Documented by: Cefazolin Sodium 1 gm/ (Dextrose) 50 mls @ 100 mls/hr IVPB Q6H-IV LINK Last Admin: 06/01/20 10:17 Dose: 100 mls/hr Documented by: Loratadine (Claritin -) 10 mg PO DAILY PRN PRN Reason: ALLERGIES Morphine Sulfate (Morphine Sulfate) 2 mg IVPUSH Q4H PRN PRN Reason: Breakthrough pain Last Admin: 06/01/20 04:40 Dose: 2 mg Documented by: Mupirocin (Bactroban Ointment (For Decolonization) -) 1 applic NS BID [facility] Stop: 06/04/20 21:59 Last Admin: 06/01/20 10:22 Dose: 1 applic Documented by: Ondansetron HCl (Zofran Injection) 4 mg IVPUSH Q6H PRN PRN Reason: NAUSEA AND/OR VOMITING Oxycodone HCl (Roxicodone -) 5 mg PO Q6H PRN PRN Reason: PAIN LEVEL 7 - 10 Last Admin: 06/01/20 08:51 Dose: 5 mg Documented by: Oxycodone HCl (Oxycontin -) 10 mg PO BID [facility] Stop: 06/01/20 23:59 Last Admin: 06/01/20 10:21 Dose: 10 mg Documented by: Promethazine HCl (Phenergan Injection -) 12.5 mg IVPUSH Q6H PRN PRN Reason: NAUSEA-FOR RESCUE AFTER 15 MIN Gen: NAD at rest Heart: RRR Lung: decreased breath sounds at the bases Abd: soft, (+) BS, intact dressings Ext: no edema Drains with serosanguinous fluid Laboratory Results - last 24 hr 06/01/20 06/01/20 06/01/20 06:15 06:15 06:15 WBC 6.4 RBC 2.95 L Hgb 9.1 L Hct 26.4 L MCV 89.4 MCH 30.9 MCHC 34.6 RDW 12.4 Plt Count 170 MPV 7.5 PTT (Actin FS) 57.8 H Sodium 138 Potassium 3.5 Chloride 105 Carbon Dioxide 28 Anion Gap 5 L BUN 6.4 L Creatinine 0.3 L Est GFR (CKD-EPI)AfAm 159.14 Est GFR (CKD-EPI)NonAf 137.31 Random Glucose 99 Calcium 7.9 L Phosphorus 2.5 Magnesium 2.2 Albumin 2.5 L ASSESSMENT AND PLAN: Breast CA S/P Bilateral Mastectomies POD # 1: MICHAEL flap Anemia - Flap monitoring - pain control - incentive spirometry - O2 to keep SpO2 >90% - rehab/PT - DVT prophylaxis - dispo per surgery Dr Miranda
[2020-06-01 12:22] LABS: HEMATOCRIT 26.5 % (32.4-45.2); HEMOGLOBIN 9.3 GM/dL (10.7-15.3); MCH 31.8 pg (25.7-33.7); MCHC 35.2 g/dl (32.0-36.0); MEAN CELL VOLUME 90.3 fl (80-96); MEAN PLT VOLUME 8.2 fl (7.5-11.1); PLATELET COUNT 168 K/MM3 (134-434); RBC 2.93 M/mm3 (3.60-5.2); RDW 12.4 % (11.6-15.6); WHITE BLOOD COUNT 5.6 K/mm3 (4.0-10.0)
--- NOTE | 2020-06-01 12:33 | PN ---
Physical Exam: SUBJECTIVE: Patient seen and examined. Overnight patient was anxious, so overnight team gave valium. Minimal sanguineous drainage from KIRBY drains. Endorses arm pain and throat pain improved. Rates pain as 5/10. Denies N/V, BM, and passing flatus. Was SOB overnight and had 100.6 F temperature yesterday @20:00; on 5 L NC O2, saturating at 100%. POD#2 OBJECTIVE: Vital Signs Period Temp Pulse Resp BP Sys/Walker Pulse Ox Last 24 Hr 98.5 F-100.6 F 75-99 13-19 91-112/49-60 95-100 GENERAL: Awake, alert, and fully oriented, in no acute distress. HEENT: Normal with no signs of trauma. Pupils equal, round and reactive to light, Moist mucous membranes. LUNGS: decreased breath sounds b/l bases. No wheezes, and no crackles. No accessory muscle use. HEART: Regular rate and rhythm, normal S1 and S2 without murmur, rub or gallop. CHEST: bilateral incisions under breasts. incisions clean & dry, no discharge. TTP ABDOMEN: Soft, not distended, no guarding, no rebound, no masses. hypoactive bowel sounds, transverse incision clean & dry, no discharge. TTP diffusely EXTREMITIES: 2+ pulses, warm, well-perfused. No peripheral edema. NEUROLOGICAL: Normal speech. Gait not assessed PSYCHIATRIC: Cooperative. Good eye contact. Appropriate mood and affect. SKIN: Warm, dry, normal turgor, no rashes. Laboratory Results - last 24 hr 06/01/20 06/01/20 06/01/20 06:15 06:15 06:15 WBC 6.4 RBC 2.95 L Hgb 9.1 L Hct 26.4 L MCV 89.4 MCH 30.9 MCHC 34.6 RDW 12.4 Plt Count 170 MPV 7.5 PTT (Actin FS) 57.8 H Sodium 138 Potassium 3.5 Chloride 105 Carbon Dioxide 28 Anion Gap 5 L BUN 6.4 L Creatinine 0.3 L Est GFR (CKD-EPI)AfAm 159.14 Est GFR (CKD-EPI)NonAf 137.31 Random Glucose 99 Calcium 7.9 L Phosphorus 2.5 Magnesium 2.2 Albumin 2.5 L Active Medications Generic Name Dose Route Start Last Admin Trade Name Freq PRN Reason Stop Dose Admin Acetaminophen 1,000 mg 05/31/20 14:17 05/31/20 19:57 Tylenol - PO 1,000 mg Q6H PRN Administration PAIN LEVEL 1 - 3 Chlorhexidine Gluconate 1 applic 05/30/20 22:00 05/31/20 21:33 Hibiclens For Decolonization - TP 1 applic HS LINK Administration Diazepam 5 mg 05/30/20 16:38 06/01/20 01:18 Valium - PO 5 mg Q8H PRN Administration ANXIETY Docusate Sodium 100 mg 05/30/20 22:00 06/01/20 10:52 Colace - PO 100 mg BID LINK Administration Fluticasone Propionate 1 spray 05/31/20 20:44 06/01/20 08:50 Flonase - NS 1 spray BID PRN Administration Congestion Heparin Sodium (Porcine) 25, 500 mls @ 10 mls/hr 05/30/20 16:48 05/31/20 16:59 000 unit/ Sodium Chloride IV Not Given TITR LINK Protocol 500 UNIT/HR Sodium Chloride 1,000 mls @ 42 mls/hr 05/31/20 12:30 05/31/20 13:55 Normal Saline - IV 42 mls/hr ASDIR LINK Administration Cefazolin Sodium 1 gm/ 50 mls @ 100 mls/hr 06/01/20 09:30 06/01/20 10:17 Dextrose IVPB 100 mls/hr Q6H-IV LINK Administration Loratadine 10 mg 05/31/20 20:44 Claritin - PO DAILY PRN ALLERGIES Morphine Sulfate 2 mg 05/30/20 16:56 06/01/20 04:40 Morphine Sulfate IVPUSH 2 mg Q4H PRN Administration Breakthrough pain Mupirocin 1 applic 05/30/20 22:00 06/01/20 10:22 Bactroban Ointment (For Decolonization) - NS 06/04/20 21:59 1 applic BID LINK Administration Ondansetron HCl 4 mg 05/30/20 17:10 Zofran Injection IVPUSH Q6H PRN NAUSEA AND/OR VOMITING Oxycodone HCl 5 mg 05/31/20 20:32 06/01/20 08:51 Roxicodone - PO 5 mg Q6H PRN Administration PAIN LEVEL 7 - 10 Oxycodone HCl 10 mg 05/31/20 22:00 06/01/20 10:21 Oxycontin - PO 06/01/20 23:59 10 mg BID LINK Administration Promethazine HCl 12.5 mg 05/30/20 17:10 Phenergan Injection - IVPUSH Q6H PRN NAUSEA-FOR RESCUE AFTER 15 MIN ASSESSMENT/PLAN: Patient is a 45 YO F with no significant PMH who presents for bilateral breast reconstruction with MICHAEL (Deep Inferior Epigastric Perforators) flap. POD#2 Neuro -AAOX3 -morphine 2 gm IV PUSH Q4H PRN, oxycodone, acetaminophen 1000 mg PO Q6H PRN for pain -keep legs in flexed position in bed -PT to assist w/ ambulation. Per surgery, must walk in a hunched-over position for ambulation Cardio no acute issues Pulm -Was SOB overnight and had 100.6 F temperature yesterday @20:00. Likely atelectasis as patient has decreased breath sounds b/l at the bases and had difficulty using incentive spirometry yesterday 2/2 pain -on 5 L NC O2, saturating at 100%. Will titrate O2 down as tolerated. -encourage Incentive Spirometer use GI docusate 100 mg PO BID promethazine 12.5 mg IV push Q6H PRN & ondansetron 4 mg IV push Q6H PRN for Nausea Renal 2186 ml I's/2900 ml O's/-714 ml balance ID s/p cefazolin 2 gm cefazolin 1 gm/D5W Q6H for 24 hrs FEN regular diet monitor lytes NS@42 mll/hr DVT heparin 500 units/h Lines -5 KIRBY drains (2 on Left breast, 1 Left abdomen, 1 R breast, 1 right abdomen) DISPO Maintain ICU ATTENDING PHYSICIAN STATEMENT I saw and evaluated the patient. I reviewed the resident's note and discussed the case with the resident. I agree with the resident's findings and plan as documented. SUBJECTIVE: OBJECTIVE: ASSESSMENT AND PLAN:
[2020-06-01] MEDS: SODIUM CHLORIDE 1,000 ML IV SCH (14:51)
[2020-06-01] MEDS: ACETAMINOPHEN 500 MG TABLET (FP) PO PRN (15:04)
[2020-06-01] MEDS: HEPARIN - 25,000 UNIT in SODIUM CHLORIDE 495 ML IV SCH (17:27)
--- NOTE | 2020-06-01 17:44 | PATH ---
Surgical Pathology Report Patient Name: DOROTHY ALLEN [facility]. Rec. #: [id number] /Age/Gender: 1975 (Age: 45) / F Account: [id number] Location: ICU RN CLINICAL DOCUMENTATION SPECIALIST Taken: 05/30/2020 Received: 05/31/2020 Reported: 06/01/2020 Physicians: Herber Jerry Specimen(s) Received HERNIA SAC Clinical History Breast cancer Final Diagnosis HERNIA SAC, EXCISION : MATURE FIBROADIPOSE TISSUE. Electronically Signed Dorothy Thornton M.D. Gross Description Received in formalin labeled "hernia sac," is a 3.5 x 2.3 x 1.0 cm portion of yellow lobulated adipose tissue. No areas of hemorrhage or necrosis are identified. The specimen is sectioned and rental sales representative sections are submitted in one cassette. /05/31/2020 [facility]/05/31/2020
--- NOTE | 2020-06-01 19:02 | OP ---
DATE OF OPERATION: 05/30/2020 PREOPERATIVE DIAGNOSIS: 1. Personal history of breast cancer. 2. Acquired absence of bilateral breasts. POSTOPERATIVE DIAGNOSIS: 1. Personal history of breast cancer. 2. Acquired absence of bilateral breasts. PROCEDURE: 1. Bilateral breast open capsulotomies with redefinition of bilateral breast pockets. 2. Bilateral breast reconstruction with deep inferior epigastric wildlife control operator microvascular free flaps. 3. Bilateral partial third rib resection. 4. Bilateral exploration of internal mammary vessels with extensive adventitectomies. 5. Bilateral breast and lower abdominal flap intraoperative angiography using indocyanine green. 6. Bilateral angiography image processing and interpretation. 7. Bilateral ultrasound guided transverse abdominis plane regional nerve block. ATTENDING SURGEON: So Perez MD. CO-SURGEON: Ruddy Jerry MD. COURT SECURITY OFFICER: Blaise Fabian RPA. ANESTHESIA: General endotracheal anesthesia. ESTIMATED BLOOD LOSS: 150 mL. SPECIMEN: None. DRAINS: 1. Number 15 round Jesus Alberto drain x1 for right breast. 2. Number 15 round Jesus Alberto drain type 2 to left breast. 3. Number 15 round Jesus Alberto drain x2 to abdomen. COMPLICATIONS: None. CONDITION: Stable to recovery room, extubated. INDICATION: The patient is a 45-year-old female with a history of breast cancer who previously underwent bilateral nipple-sparing mastectomies with tissue substation electrician supervisor reconstruction. 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 She has been flat for several years and now presents for bilateral breast delayed reconstruction. Given her history of infection and scarring of bilateral breasts, the patient is most appropriately a candidate of delayed autologous reconstruction using her lower abdominal tissue. The risks, benefits, and alternatives of the reconstructive procedures were discussed with the patient preoperatively in detail and all questions were answered. The risks include but are not limited to bleeding, infection, pain, need for revision or further surgery, partial or complete skin loss, partial or complete nipple loss, partial or complete free flat loss, damage to neighboring structures including nerves, arteries, veins, or tendons. The patient understands these risks and has elected to proceed with surgery. DESCRIPTION OF PROCEDURE: After proper identification and marking of the patient in the preoperative holding area, the patient was transported to the operating room, placed supine on the table while noninvasive monitors applied. Intravenous access with subcutaneous heparin was then given. Intravenous antibiotics were then given. A Edwards catheter was then placed. At this point, the patient's bilateral breasts as well as abdomen and flanks were prepped and draped in usual sterile fashion. At this point, Dr. Jerry and I began the reconstructive procedures, working independently as co-surgeons with separate instrument setups and separate distribution field technician teams. Attention was first turned towards the lower abdomen where skin hooks were placed at the 12 and 6 o'clock position of the umbilicus. The umbilicus was circumferentially incised with a number 15-blade. A periumbilical dissection was then performed with the Metzenbaum scissors, with care taken to leave adequate periumbilical fat. Next, the superior and inferior limbs of the lower abdominal flap design were incised with a number 10-blade. The superior limb was carried down through the full thickness of the subcutaneous tissue with electrocautery with care taken to bevel outwards. Once the anterior abdominal wall was reached, the superior abdominal skin flap was raised up to the xiphoid process in the midline and the costal margin bilaterally. Next, the inferior lower abdominal incision was carried down through the subcutaneous tissue in a layer by layer fashion. Bilateral superficial inferior epigastric veins were identified. Using microvascular instruments and techniques, bilateral superficial inferior epigastric vein dissection was performed more proximally. Care was taken to individually identify, circumferentially dissect, ligate and divide side branches. Once adequate length and caliber had been achieved on the bilateral superficial veins, they were ligated and divided. The remainder of the subcutaneous tissue was then dissected down to the anterior abdominal wall. Next, the lower abdominal flap was incised in the midline, and the dissection carried down through the full thickness of the subcutaneous tissue to the linea alba. At this point, attention was turned towards the right lower abdominal flap. The flap was raised just above the anterior abdominal wall fascia from both lateral and medial direction. There were noted to be 2 dominant medial row perforators which coincided with the patient's preoperative imaging, and the decision was made to base the right lower abdominal flap off of these 2 medial row perforators. Therefore, the perforators were circumferentially dissected as they exited through the fascia. The fascia was then opened superiorly and inferiorly as well as the intervening fascia between the perforators. At this point, individual retrograde wildlife control operator dissections were performed through the full thickness of the rectus abdominis muscle fibers. Care was taken to divide the muscle fibers longitudinally as much as possible. Muscular side branches were individually identified, circumferentially dissected, ligated and divided. The perforators were dissected down to their takeoff from the inferior epigastric pedicles. The superior continuation of the pedicle was circumferentially dissected, ligated, and divided. At this point, a more proximal pedicle dissection was performed until adequate length and caliber had been achieved. The inferior epigastric artery and single inferior epigastric vein were individually isolated. The remainder of the lower abdominal flap was then raised off the anterior abdominal wall. The flap was then temporarily stapled in place. A Doppler signal was achieved, and a skin paddle was designed, and the remainder of the flap was deepithelialized. At this point, attention was turned towards the left lower abdominal flap. This was raised in a similar fashion as to the right side, and therefore only 1 side will be dictated. On the left side, there were noted to be 2 dominant lateral row perforators which coincided with the patient's preoperative imaging, and the decision was made to base the left lower abdominal flap on these 2 dominant perforators. Therefore, the individual wildlife control operator dissections were performed in a similar fashion as to the right side, and therefore only 1 side will be dictated. Once the left lower abdominal flap was completely isolated on its dominant perforators, the remainder of the lower abdominal flap was raised off the anterior abdominal wall, stapled in place, Doppler signal achieved, skin paddle designed, and the remainder of the flap deepithelialized. Concurrently, preparation of bilateral breast pockets was performed. Beginning on the left breast, an inframammary fold incision was designed and was made with a number 10-blade. The dissection was carried down through the full thickness of the subcutaneous tissue until the previous breast capsule was identified. At this point, an extensive capsulotomy was performed on the left side in order to redefine the left breast pocket. This was performed using the preoperative markings and once the left breast pocket was completely developed, self-retaining retractors were placed and attention was turned towards harvesting of the recipient vessels. The interspace between the 3rd and 4th ribs was identified. The pectoralis major muscle fibers were divided along this interspace and then were retracted. At this point, the periosteum and perichondrium on the superficial surface of the left 3rd rib were incised with electrocautery. Next, a circumferential subperiosteal and subperichondrial dissection were performed around the left 3rd rib. Once this was completed, partial resection of the left 3rd rib was performed at the costochondral junction. Once an adequate postage stamp size piece of rib had been removed, the periosteum and perichondrium on the deep surface were carefully incised, and the underlying internal mammary artery with both medial and lateral veins were identified. At this point, using microvascular instruments and techniques, a formal exploration of the left internal mammary vessels were performed. Extensive adventitectomies were performed on the artery as well as the accompanying . Once the vessels were adequately prepared, a local anesthesia field block was performed using a mixture of 20 mL of Exparel, 30 mL of 0.25% Marcaine, and 80 mL of normal saline. A total of 40 mL of a local anesthetic mixture were injected as a field block of left anterior and lateral chest aguilar. Once the recipient vessels were completely prepared on the left side, attention was turned to the right side, where the exact same procedures were performed, and therefore only 1 side will be dictated. Again, on the right side, an extensive capsulotomy of the right breast pocket was performed followed by partial resection of the right 3rd rib and a formal exploration of the right internal mammary vessel. Again, this was performed in the exact same fashion as the left side, and therefore only 1 side will be dictated. Once bilateral recipient vessels were completely prepared, attention as turned towards the intraoperative angiography. The SPY angiography system was brought onto the field and was sterilely draped. A 5-mL intravenous injection of indocyanine green was given, and bilateral mastectomy flap as well as bilateral lower abdominal wildlife control operator flap angiography was performed. The bilateral angiography images were processed and relative perfusion data was used to assess the viability of the bilateral skin flaps and tissue. There was noted to be good perfusion to all zones of the mastectomy skin flap. The most lateral portions of the lower abdominal flaps were noted to be hypoperfused, and these were marked and excised, and the hypoperfused areas were discarded. Once the angiography was completed, attention was turned towards the microvascular transfers. The right lower abdominal flap was ligated and divided at the most proximal extent of the pedicle dissection. It was placed on a sterile scale and noted to weigh 645 g. It was brought up to the left breast pocket, where it was temporarily stapled in place. At this point, the microvascular anastomoses were performed. A 3.0-mm [employer] aeronautics teacher was used to anastomose the antegrade stump of the medial internal mammary vein to the single vein of the inferior epigastric system. Release of all clamps revealed good backflow across this anastomosis. Next, a primary hand-sewn anastomosis was performed between the internal mammary artery and the inferior epigastric artery using an 8-0 nylon suture in a simple interrupted fashion. Release of all clamps revealed good initial flow across this anastomosis; however, after 5 minutes, there was noted to be cessation of flow and no perfusion to the microvascular free flap. Therefore, the arterial anastomosis was excised, and there was noted to be clot across the anastomosis. The vessels were prepared again back to healthy appearing vessels, and care was taken to insure all clot was removed from both the internal mammary artery and the inferior epigastric artery. Adequate inflow was confirmed. At this point, a 3000 unit IV bolus of heparin was given, and the patient was started on a heparin drip at 500 units an hour given the thrombus across the arterial anastomosis. At this point, the arterial anastomosis was performed again using an 8-0 nylon suture in a simple interrupted fashion. There was noted to be slow flow initially but with warming and papaverine, the flap was noted to increase in perfusion. At this point, 2 mg of TPA were infused into the inferior epigastric artery distal to the anastomosis. Care was taken to clamp the venous outflow, and this venous outflow remained clamped for 7 minutes after the infusion and then was released. There was noted to be good maintained perfusion to the microvascular free flap with a strong biphasic Doppler signal. Therefore, attention was turned towards insetting of the left breast flap. The left breast flap was carefully positioned into the left breast pocket. Care was taken to insure a good lie of the pedicle without twisting or kinking. The [employer] implantable Doppler system was brought onto the field, and was placed around the inferior epigastric artery distal to the anastomosis. It was hooked up to the [employer] implantable machine, and there was noted to be a strong biphasic signal. The plastic disks were secured to the lateral chest wall with anjel. At this point, the mastectomy skin flap was re-draped. The amount of inframammary fold skin paddle to be externalized was marked, and redundant skin paddle was deepithelialized. Two number 15 round Jesus Alberto drains were placed in the left breast pocket and brought out through separate stab incisions laterally and secured to the skin with 3-0 nylon sutures. The microvascular free flap skin paddle was then inset to the surrounding mastectomy skin flap edges using a 3-0 Biosyn in a buried deep dermal fashion followed by a 3-0 V-Loc in a running subcuticular fashion. Once the left breast closure was completed, there was noted to be a strong biphasic Doppler signal, and therefore attention was turned towards the microvascular transfer to the right breast. The left lower abdominal flap was ligated and divided at the most proximal extent of the pedicle dissection. It was placed under sterile scale and noted to weight 609 g. It was brought up to the right breast pocket, where it was temporarily stapled in place. At this point, the microvascular anastomoses were performed. A 3.0-mm [employer] aer[employer] teacher was used to anastomose the antegrade stump of the internal mammary vein to the single dominant vein of the inferior epigastric system. Release of all clamps revealed good backflow across this anastomosis. Next, a primary hand-sewn anastomosis was performed between the internal mammary artery and the inferior epigastric artery using an 8-0 nylon suture in a simple interrupted fashion. Release of all clamps revealed good flow across this anastomosis and good perfusion to the microvascular free flap. The right breast flap was carefully positioned and inset into the right breast pocket in a similar fashion as to the left side, and therefore only 1 side will be dictated. Again, a [employer] implantable Doppler was placed around the inferior epigastric artery on the right side as well, and the right breast closure was performed in a similar fashion as to the left side, and therefore only 1 side will be dictated. Once bilateral breast closures were completed, there were noted to be strong biphasic signals in both implantable Doppler signals, and normal capillary refill to bilateral inframammary fold skin paddles. Concurrently, closure of the abdomen was performed. The fascial incisions bilaterally were reapproximated primarily using a 0 V-Loc suture in simple running fashion. Once this was completed, the ultrasound system was brought onto the field and was sterilely draped. The same local anesthetic mixture that had been used for the chest wall field blocks was not used to performed bilateral transverse abdominis plane regional nerve blocks. A total of 30 mL of the local anesthetic mixture were injected into each side, again under ultrasound guidance. Once the regional nerve blocks were completed, attention was turned towards the abdominal closure. Two number 15 round Jesus Alberto drains were placed in the abdominal pocket, and brought out through the most lateral extent of the lower abdominal incision and secured to the skin with 3-0 nylon sutures. The superior abdominal skin flap was then advanced inferiorly and was temporarily stapled close. A layered closure of the lower abdominal incision was then performed using a 2-0 PDS in an interrupted buried fashion to reapproximate Gloria fascia followed by a 3-0 PDS in a buried deep dermal fashion, and finally a 3-0 V-Loc suture in a running, subcuticular fashion. Once the lower abdominal closure was completed, the site of the umbilicus transposition was marked, and a vertically oriented ellipse with a core of fat was excised and discarded. The umbilicus was then transposed and inset using a 3-0 PDS in a buried deep dermal fashion. Once all incisions were closed, Dermabond was applied to bilateral breast incisions as well as the umbilicus closure line, and the lower abdominal incision was dressed with Prineo tape. The patient at this point was placed in a soft surgical bra, and windows were cut along bilateral inframammary folds for monitoring. The patient at this point was fully awakened and extubated without incident and was transported to recovery room in stable condition. SO PEREZ M.D. [id number]
[2020-06-01] MEDS: CHLORHEXIDINE GLUCONATE 4% CLEANSER FOR DECOLONIZATION TP SCH (22:00)
[2020-06-02] MEDS: CEFAZOLIN 1 GM in DEXTROSE 5%-WATER - 50 ML IVPB SCH ×3 (03:00→14:06)
[2020-06-02] MEDS ORDERED: ceFAZolin SODIUM 1 GM VIAL ONE ×3 (04:13→14:03)
[2020-06-02] MEDS ORDERED: DEXTROSE 5%-WATER - 50 ML IVPB ONE ×3 (04:13→14:03)
[2020-06-02] MEDS: oxyCODONE HCL 10 MG SUSTAINED ACTING TABLET PO SCH (06:39)
[2020-06-02 06:50] LABS: HEMATOCRIT 29.1 % (32.4-45.2); HEMOGLOBIN 10.1 GM/dL (10.7-15.3); MCHC 34.6 g/dl (32.0-36.0); MEAN CELL VOLUME 89.5 fl (80-96); MEAN PLT VOLUME 7.3 fl (7.5-11.1); PLATELET COUNT 187 K/MM3 (134-434); RBC 3.25 M/mm3 (3.60-5.2); RDW 12.3 % (11.6-15.6); WHITE BLOOD COUNT 6.7 K/mm3 (4.0-10.0)
[2020-06-02 07:09] LABS: ALBUMIN 2.6 g/dl (3.4-5.0); BLOOD UREA NITROGEN 7.2 mg/dL (7-18); CALCIUM 8.6 mg/dL (8.5-10.1); CREATININE 0.4 mg/dL (0.55-1.3); MAGNESIUM 2.4 mg/dL (1.8-2.4); PHOSPHOROUS 3.2 mg/dL (2.5-4.9); POTASSIUM 3.7 mmol/L (3.5-5.1)
--- NOTE | 2020-06-02 08:27 | PN ---
Progress Note (short form) - Note Progress Note: surgery: Pt OOB to chair and ambulated yesterday. No nasuea or emesis. Voiding without difficulty. Vital Signs Period Temp Pulse Resp BP Sys/Walker Pulse Ox Last 24 Hr 98.5 F-101.0 F 70-90 15-17 91-111/46-62 96-100 KIRBY-are serosangrenous #1- 5ml #2-10ml #3-30ml #4-10ml GEN: A&0x3, NAD B/l breast with viable flaps, no congestion. Left flap with some ecchymosis. good signal b/l. Inc c/d/i ABD: inc c/d/i with mild superficial ischemia-mid incision extending superiorly 3cm. Umbilicus c/d/i. LE: no calf tenderness b/l CBC, BMP 06/02/20 05:44 06/02/20 05:44 A/P: 45 yo female s/p b/l breast reconstruction with MICHAEL flap, POD#3 Continue regular diet and oral pain medications with oxycodone Pt with fever, most likely secondary to atlectasis. Pt with productive clear cough when uses incentive spirometer. No leukocytosis Discontinue to IV heparin, oral aspirin given this am and will start julian ambriz D/w Dr. Jerry, pt for discharge to home today.
[2020-06-02] MEDS: oxyCODONE HCL 5 MG TABLET PO PRN (09:34)
[2020-06-02] MEDS: DOCUSATE SODIUM 100 MG CAPSULE (FP) PO SCH (09:35)
[2020-06-02] MEDS: MUPIROCIN 2% TOPICAL OINTMENT FOR DECOLONIZATION NS SCH (09:40)
[2020-06-02] MEDS ORDERED: ASPIRIN 81 MG CHEWABLE TABLETS PO SCH (10:00)
--- NOTE | 2020-06-02 11:27 | HOSP ---
Subjective - Review of Symptoms Cardiovascular: Yes: Chest Pain (incisional pain at her breasts: improved since yesterday, rated pain 2/10 ) Gastrointestinal: Yes: Abdominal Pain (improved since yesterday, rated pain 2/10 ) Physical Examination Vital Signs: Vital Signs Temperature 98.5 F 06/02/20 06:00 Pulse Rate 70 06/02/20 06:00 Respiratory Rate 16 06/02/20 06:00 Blood Pressure 103/49 L 06/02/20 06:00 O2 Sat by Pulse Oximetry (%) 99 06/02/20 06:00 Constitutional: Yes: No Distress HENT: Yes: Atraumatic, Normocephalic Cardiovascular: Yes: Regular Rate and Rhythm, S1, S2 Respiratory: Yes: Regular, Diminished (decreased breath sounds b/l. Worse on the Left. However, breath sounds improved compared to yesterday's exam) Gastrointestinal: Yes: Normal Bowel Sounds, Other (incisions clean & dry) Breast(s): Yes: Other (incisions clean & dry) Labs: CBC, BMP 06/02/20 05:44 06/02/20 05:44 Hospitalist Encounter Assessment: Patient is a 45 YO F with no significant PMH who presents for bilateral breast reconstruction with MICHAEL (Deep Inferior Epigastric Perforators) flap. nodules were noted on the Right breast on routine breast ultrasound in 2014. As a result she underwent, bilateral breast mastectomy in 2014 and TC chemotherapy [docetaxel (Taxotere), cyclophosphamide] every 3 weeks. Denies radiation therapy. She was ER+ and took Arimidex, but was not tolerating it, so she stopped. Patient has been in remission since 2016. Patient is now POD#3. She is receiving morphine 2 gm IV PUSH Q4H PRN, oxycodone, acetaminophen 1000 mg PO Q6H PRN for pain. Surgery recommended keeping legs in flexed position in bed & walk in a hunched-over position for ambulation. Has 5 KIRBY drains (2 on Left breast, 1 Left abdomen, 1 R breast, 1 right abdomen). Tod patricia, her 2 Left breast KIRBY drains drained 5 ml and 10 ml. Left abdomen drained 50 ml. Right abdominal drain drained 10 ml sanguineous fluid. Patient was on heparin 500 units/h for clot in her left breast, but surgery will discontinue heparin drip today. Overnight her temperature was 101 F. Patient continues to have decreased breath sounds bilaterally, worse at the right base. However, breath sounds are better than yesterday. WBCs 6.7.. Fever likely 2/2 to atelectasis. Continue encouraging incentive spirometry use. Was on 3 L NC, but Titrating O2 as tolerated. cefazolin 1 gm/D5W Q6H for 24 hrs .
[2020-06-02] MEDS ORDERED: oxyCODONE HCL 5 MG TABLET PO PRN (12:07)
--- NOTE | 2020-06-02 12:17 | PN ---
Teaching Attending Note Name of Resident: Ruddy Holman ATTENDING PHYSICIAN STATEMENT I saw and evaluated the patient. I reviewed the resident's note and discussed the case with the resident. I agree with the resident's findings and plan as documented. SUBJECTIVE: Patient seen and examined in the ICU. Pain better controlled this AM. 1000 cc on incentive spirometry. On 3L NC O2. Low grade temp overnight. OBJECTIVE: Intake & Output 05/30/20 05/31/20 06/01/20 06/02/20 23:59 23:59 23:59 23:59 Intake Total 2593 2186 1200 1102 Output Total 1288 2900 803 180 Balance 1305 -714 397 922 Weight 170 lb Last Vital Signs Temp Pulse Resp BP Pulse Ox 98.5 F 70 16 103/49 L 99 06/02/20 06:00 06/02/20 06:00 06/02/20 09:00 06/02/20 06:00 06/02/20 09:00 Active Medications Acetaminophen (Tylenol -) 1,000 mg PO Q6H PRN PRN Reason: PAIN LEVEL 1 - 3 Last Admin: 06/01/20 15:04 Dose: 1,000 mg Documented by: Apixaban (Eliquis -) 2.5 mg PO BID LINK Aspirin (Asa -) 81 mg PO DAILY LINK Last Admin: 06/02/20 12:02 Dose: 81 mg Documented by: Chlorhexidine Gluconate (Hibiclens For Decolonization -) 1 applic TP HS LINK Last Admin: 06/01/20 22:00 Dose: 1 applic Documented by: Diazepam (Valium -) 5 mg PO Q8H PRN PRN Reason: ANXIETY Last Admin: 06/01/20 15:05 Dose: 5 mg Documented by: Docusate Sodium (Colace -) 100 mg PO BID LINK Last Admin: 06/02/20 09:35 Dose: 100 mg Documented by: Fluticasone Propionate (Flonase -) 1 spray NS BID PRN PRN Reason: Congestion Last Admin: 06/01/20 08:50 Dose: 1 spray Documented by: Cefazolin Sodium 1 gm/ (Dextrose) 50 mls @ 100 mls/hr IVPB Q6H-IV LINK Last Admin: 06/02/20 08:53 Dose: 100 mls/hr Documented by: Loratadine (Claritin -) 10 mg PO DAILY PRN PRN Reason: ALLERGIES Mupirocin (Bactroban Ointment (For Decolonization) -) 1 applic NS BID LINK Stop: 06/04/20 21:59 Last Admin: 06/02/20 09:40 Dose: 1 applic Documented by: Ondansetron HCl (Zofran Injection) 4 mg IVPUSH Q6H PRN PRN Reason: NAUSEA AND/OR VOMITING Oxycodone HCl (Roxicodone -) 5 mg PO Q6H PRN PRN Reason: PAIN LEVEL 7 - 10 Last Admin: 06/02/20 09:34 Dose: 5 mg Documented by: Oxycodone HCl (Roxicodone -) 10 mg PO Q6H PRN PRN Reason: PAIN LEVEL 6-10 Promethazine HCl (Phenergan Injection -) 12.5 mg IVPUSH Q6H PRN PRN Reason: NAUSEA-FOR RESCUE AFTER 15 MIN Gen: NAD at rest Heart: RRR Lung: decreased breath sounds at the bases Abd: soft, (+) BS, intact dressings Ext: no edema Drains with serosanguinous fluid Laboratory Results - last 24 hr 06/01/20 06/02/20 06/02/20 11:44 05:44 05:44 WBC 5.6 6.7 RBC 2.93 L 3.25 L Hgb 9.3 L 10.1 L Hct 26.5 L 29.1 L MCV 90.3 89.5 MCH 31.8 31.0 MCHC 35.2 34.6 RDW 12.4 12.3 Plt Count 168 187 MPV 8.2 7.3 L D PTT (Actin FS) 28.3 Sodium Potassium Chloride Carbon Dioxide Anion Gap BUN Creatinine Est GFR (CKD-EPI)AfAm Est GFR (CKD-EPI)NonAf Random Glucose Calcium Phosphorus Magnesium Albumin 06/02/20 05:44 WBC RBC Hgb Hct MCV MCH MCHC RDW Plt Count MPV PTT (Actin FS) Sodium 139 Potassium 3.7 Chloride 101 Carbon Dioxide 30 Anion Gap 7 L BUN 7.2 Creatinine 0.4 L Est GFR (CKD-EPI)AfAm 144.77 Est GFR (CKD-EPI)NonAf 124.91 Random Glucose 82 Calcium 8.6 Phosphorus 3.2 Magnesium 2.4 Albumin 2.6 L ASSESSMENT AND PLAN: Breast CA S/P Bilateral Mastectomies POD # 1: MICHAEL flap Anemia - Flap monitoring - pain control - incentive spirometry - O2 to keep SpO2 >90% - rehab/PT - DVT prophylaxis - DC planing per surgery Dr Miranda
--- NOTE | 2020-06-02 13:55 | DS ---
"Physical Exam: SUBJECTIVE: Patient seen and examined OBJECTIVE: Vital Signs Period Temp Pulse Resp BP Sys/Walker Pulse Ox Last 24 Hr 98.5 F-101.0 F 70-90 15-17 93-111/46-62 96-100 PHYSICAL EXAM GENERAL: The patient is awake, alert, and fully oriented, in no acute distress. HEAD: Normal with no signs of trauma. EYES: PERRL, extraocular movements intact, sclera anicteric, conjunctiva clear. ENT: Ears normal, nares patent, oropharynx clear without exudates, moist mucous membranes. NECK: Trachea midline, full range of motion, supple. LUNGS: Breath sounds equal, clear to auscultation bilaterally, no wheezes, no crackles, no accessory muscle use. HEART: Regular rate and rhythm, S1, S2 without murmur, rub or gallop. ABDOMEN: Soft, nontender, nondistended, normoactive bowel sounds, no guarding, no rebound, no hepatosplenomegaly, no masses. EXTREMITIES: 2+ pulses, warm, well-perfused, no edema. NEUROLOGICAL: Cranial nerves II through XII grossly intact. Normal speech, gait not observed. PSYCH: Normal mood, normal affect. SKIN: Warm, dry, normal turgor, no rashes or lesions noted. LABS Laboratory Results - last 24 hr 06/02/20 06/02/20 06/02/20 05:44 05:44 05:44 WBC 6.7 RBC 3.25 L Hgb 10.1 L Hct 29.1 L MCV 89.5 MCH 31.0 MCHC 34.6 RDW 12.3 Plt Count 187 MPV 7.3 L D PTT (Actin FS) 28.3 Sodium 139 Potassium 3.7 Chloride 101 Carbon Dioxide 30 Anion Gap 7 L BUN 7.2 Creatinine 0.4 L Est GFR (CKD-EPI)AfAm 144.77 Est GFR (CKD-EPI)NonAf 124.91 Random Glucose 82 Calcium 8.6 Phosphorus 3.2 Magnesium 2.4 Albumin 2.6 L HOSPITAL COURSE: Date of Admission:05/30/20 Date of Discharge: 06/02/20 Discharge Summary Reason For Visit: BREAST CANCER Current Active Problems Breast cancer (Acute) Status post bilateral breast reconstruction (Acute) Condition: Stable - Instructions Diet, Activity, Other Instructions: Drs. Jerry and Magdalena Discharge Instructions -MICHAEL Flap Diet: Resume regular diet. Avoid caffeinated beverages Encourage low salt diet to help with swelling. Encourage fluid intake. Activity: Please maintain flexed position at all times (when sleeping, place pillows behind back and under your knees). Sponge bath only until your office visit. Please be careful moving your arms too much and using your pectoralis muscles (chest) for the first few days as well. Wound care: Please keep all dressings on as is. Can remove the gauze in bra before bathing, but leave all the tapes/steri-strips on. Please wear surgical bra at all times, except when bathing. Swelling in the abdomen, flanks and thighs is to be expected. Feeling of deep soreness is also to be expected. Apply xeroform daily to mid abdominal incision. Between the umbilicus and inferior incision. Medication: Patient already received all prescriptions prior to surgery. Please take them as instructed. Appointment: Please call our office within one week to make an appointment to see your surgeon at [phone]. If you have any questions or concerns, please call/return to office sooner. [facility] The Drug Utilization Report below displays all of the controlled substance prescriptions, if any, that your patient has filled in the last twelve months. The information displayed on this report is compiled from pharmacy submissions to the Department, and accurately reflects the information as submitted by the pharmacies. This report was requested by: Blaise Fabian | Reference #: [id number] Disposition: VNS/HOME HEALTH CARE - Home Medications Comprehensive Discharge Medication List: Ambulatory Orders Apixaban [Eliquis] 2.5 mg PO BID #14 tablet 06/01/20 Aspirin [ASA -] 81 mg PO DAILY #30 tab.chew 06/01/20 Cefadroxil 500 mg PO BID #20 capsule 06/01/20 Docusate Sodium [Colace] 100 mg PO TID #30 capsule 06/01/20 oxyCODONE HCL [Roxicodone -] 5 mg PO Q6H PRN #30 tablet MDD 8 06/02/20 ATTENDING PHYSICIAN STATEMENT I saw and evaluated the patient. I reviewed the resident's note and discussed the case with the resident. I agree with the resident's findings and plan as documented. SUBJECTIVE: OBJECTIVE: ASSESSMENT AND PLAN:"
[2020-06-02] MEDS: ACETAMINOPHEN 500 MG TABLET (FP) PO PRN (14:54)
[2020-06-02 16:49] VITALS: BP 103/52; PULSE 82; TEMP 98.9
[2020-06-02] MEDS ORDERED: APIXABAN 2.5 MG TABLET PO SCH (22:00)
--- NOTE | 2020-06-08 12:43 | OP ---
DATE OF OPERATION: 05/30/2020 SURGEON: Herber Jerry MD CO-SURGEON: Donn Nichols MD PREOPERATIVE DIAGNOSES: 1. Personal history of breast carcinoma. 2. 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 3. Acquired deformity of breast after removal of tissue food service sales representatives and failed reconstruction. POSTOPERATIVE DIAGNOSES: 1. Personal history of breast carcinoma. 2. 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 3. Acquired deformity of breast after removal of tissue food service sales representatives and failed reconstruction. OPERATIVE PROCEDURE: 1. Bilateral delayed breast reconstruction with deep inferior epigastric perforated microsurgical free tissue transfer. 2. Bilateral capsulotomies, removal of capsule and reconstruction of breast implant pocket. 3. Bilateral exploration of internal mammary vessels with extensive adventitectomies. 4. Bilateral breast lower abdominal flap intraoperative SPY angiography using indocyanine green. 5. Partial bilateral resection of 3rd rib. 6. Bilateral angiographic interpretation of angiographic images. 7. Bilateral ultrasonic-guided transverse abdominis plane regional nerve blocks for postoperative care. OPERATIVE INDICATION: Patient is a 45-year-old female who underwent previous breast reconstruction with a history of genetic carcinoma. The patient unfortunately developed an infection with removal of her tissue expanders at an outside institution with outside surgeons. She has now been living with this deformity and, after many discussions of the risks and benefits, surgical versus nonsurgical alternatives as well as the material complications of microsurgical flap reconstruction, the patient agreed to the planned procedure. All questions were asked and answered. OPERATIVE PROCEDURE IN DETAIL: Patient was taken to the operating room and, after induction of general anesthesia in the supine position, both arms were extended and padded. Venodyne boots were placed. A Edwards catheter was placed and intravenous antibiotics were given. Patient then underwent timeout. This operation was carried out by Dr. Nichols and myself in order to reconstruct the breasts independently and create a safer environment with extensive dissection of the internal mammary vessels and lower abdominal tissue. First, attention was turned to the lower abdominal tissue where the umbilicus was circumscribed and dropped back using a No. 15 scalpel. The periumbilical dissection was then performed down to the underlying fascia and attention was turned to the lower abdominal incisions. The lower abdominal incision was raised according to the patterns which were made in the standing position preoperatively. Bilateral inferior epigastric veins were identified and dissected free in microvascular fashion using optical magnification of 4 power. Care was taken to divide these branches of the vessel and harvest the vein for later usage. At this point both right and left flaps were harvested with 2 dominant medial row perforators noted on the patient's preoperative images and the perforators were circumferentially dissected as they exited through the fascia in the usual fashion. Once the fascia was opened, the individual retrograde anesthesiologist assistant dissections were performed through full-thickness rectus abdominal fibers and care was taken to preserve the vessels. Doppler signals were good in both locations and the flaps were dissected. The exact same procedure was carried out on both sides. Both right and left were raised in similar fashion. The left side there were 2 dominant lateral vessels as opposed to the opposite and these were also dissected free in the usual fashion for deep flap reconstruction. Simultaneously, dissection of the chest wall pockets was carried out. An incision was made on the left side. An inframammary fold incision was designed and made with a No. 10 scalpel down through skin to the subcutaneous tissue, through the subcutaneous tissue down to the underlying musculature. At this point dissection was carried along the chest wall above the pectoralis major muscle up to the 3rd rib. The pectoralis muscle fibers were divided along the interspace and then retracted. The periosteum and perichondrium of the left 3rd rib was dissected to find the internal mammary vessels. Once this was accomplished, the periosteum was encountered and microvascular exploration of the internal mammary vessels was performed. At this point extensive adventitectomies were performed on the artery as well as the accompanying vein. Once these were prepared, a field block was inserted into the left chest wall using a mixture of Exparel and Marcaine into the chest wall for postoperative pain control. The opposite chest wall was also attended to in exactly the same fashion, harvesting the right-sided vessels in exactly the same fashion and taking out the 3rd rib. This will not be dictated separately as it was exactly the same procedure. Once the flap was dissected free, the flaps were transferred to the chest wall. Both the vessels were coupled using the vein on the 3 mm side and the arteries were handsewn with 8-0 nylon sutures with interrupted fashion. Once this was accomplished, good blood flow was seen to the flap and then the opposite chest wall had the same procedure in microvascular fashion. Some intravascular clot was noted and the vessel was redone and 2 mg of tissue plasminogen activator were infused in order to prevent further clotting. Once all clamps were removed good blood flow was seen to both sides and the Quitbit implantable Doppler was placed into the chest wall in order to accomplish postoperative monitoring. Closure of the abdomen was also concurrently performed by bringing down the abdominal wall which was dissected up to the rib margins bilaterally and to the xiphoid, down to the lower abdominal incision and closed the Gloria's fascia with 2-0 PDS sutures in interrupted fashion, 3-0 PDS suture in the dermis and a running subcuticular 3-0 V-Loc barbed suture was placed into the skin. A TAP block was performed just before closure with a total of 30 mL of local anesthesia injected into each TAP location. This was carried out in the usual fashion for good pain control postoperatively. The umbilicus was brought into its new anatomic position using a circumferential oval position and then sutured using 3-0 PDS sutures in multiple fashion. Dry sterile dressings with Dermabond, Steri-Strips and PRINEO were carried out. The patient tolerated the procedure well. She was awakened, extubated and transferred to the recovery room in satisfactory condition. Deena CULP/[id number]
== END 2020-06-02 17:19 | disposition home health service (06) | DRG 941 ==
LOC: J2C 04:46 → JICU 20:09
PROVIDERS: ADMIT Plastic Surgery; ATTEND Plastic Surgery
PROC: 0HRV077 Replacement of Bilateral Breast using Deep Inferior Epigastric Artery Perforator Flap, Open Approach (ICD-10-PCS; 2020-05-30)
PROC: 4A1GXSH Monitoring of Skin and Breast Vascular Perfusion using Indocyanine Green Dye, External Approach (ICD-10-PCS; principal; 2020-05-30 08:00)
DX: Z90.13 Acquired absence of bilateral breasts and nipples (principal); Z85.3 Personal history of malignant neoplasm of breast; D64.9 Anemia, unspecified; R50.9 Fever, unspecified
CPT/HCPCS: 36415; 80048; 82040; 83735; 84100; 84703; 85025; 85027; 85610; 85730; 86850; 86900; 86901; 88302-TC; 94010; 94760; 97116-GP; 97161-GP; J1644; J2997